=== PATIENT | male | born 1960 | race Caucasian/White ===

== ENCOUNTER 2017-06-22 01:18 | Emergency (ER) | payer OTHER ==
[~2017-06-22] VITALS: Ht 175.3 cm; Wt 90.7 kg
[~2017-06-22 01:18] MED LIST: LIORESAL 10MG T10 MG PO; MOTRIN 800MG T800 MG PO; PERCOCET 325 MG1 TA2 PO
[2017-06-22] MEDS ORDERED: SERTRALINE HCL100 MG PO (01:28)
[2017-06-22 02:04] LABS: ABSOLUTE BASOPHIL COUNT 0 /CUMM (0.0-0.2); ABSOLUTE EOSINOPHIL COUNT 0.2 /CUMM (0.0-0.7); ABSOLUTE GRANULOCYTE CT 6.9 /CUMM (1.4-6.5); ABSOLUTE LYMPH COUNT 2.4 /CUMM (1.2-3.4); ABSOLUTE MONOCYTE COUNT 0.6 /CUMM (0.10-0.60); BASOPHIL % 0.3 % (0.0-2.0); EOSINOPHIL % 2.2 % (0-5); GRANULOCYTE % 68.3 % (42.2-75.2); HEMATOCRIT 47.8 % (42-52); MEAN CORPUSCULAR HGB 31.3 PG (27.0-31.0); MEAN CORPUSCULAR HGB CONC 33.9 G/DL (33.0-37.0); MEAN CORPUSCULAR VOLUME 92.2 FL (80.0-94.0); PLATELET COUNT 206 /CUMM (130-400); RBC DISTRIBUTION WIDTH 13.4 % (11.5-14.5); RED BLOOD CELL CT 5.19 /CUMM (4.70-6.10); WHITE BLOOD CELL COUNT 10.1 /CUMM (4.8-10.8)
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
--- NOTE | 2017-06-22 03:05 | CT SCAN REPORT ---
EXAMINATION: CT ABDOMEN AND PELVIS WITH CONTRAST CLINICAL INFORMATION: Epigastric pain. Elevated lipase. COMPARISON: 11/11/2012 TECHNIQUE: Multidetector volumetric imaging was performed of the abdomen and pelvis following IV administration of 94 mL of Optiray 320 intravenous contrast. Sagittal and coronal reformatted images were obtained on the technologist's workstation. DLP: 354 mGy-cm FINDINGS: LUNG BASES: The visualized lung bases are unremarkable. LIVER, GALLBLADDER, AND BILIARY TREE: The liver is normal in size, shape, and attenuation. No focal hepatic lesion or biliary ductal dilatation is present. The gallbladder is unremarkable with no evidence of radiopaque gallstones, gallbladder wall thickening, or obvious pericholecystic inflammatory changes. Vague area of hypoattenuation within the main portal vein is likely artifactual. PANCREAS: Unremarkable. SPLEEN: Unremarkable. ADRENAL GLANDS: Unremarkable. KIDNEYS AND URETERS: The kidneys are normal in size, shape, and attenuation. No hydronephrosis, hydroureter, or calculi seen. No perinephric stranding. BLADDER: Unremarkable. GASTROINTESTINAL TRACT: The stomach and small bowel appear unremarkable. No dilated loops of bowel or evidence of obstruction. Normal appendix. Scattered colonic diverticulosis without diverticulitis. No colonic wall thickening or inflammatory change. No free air or free fluid. ABDOMINAL WALL: No significant hernia is appreciated. LYMPH NODES: Normal. VASCULAR: Unremarkable. PELVIC VISCERA: The prostate and seminal vesicles are unremarkable. OSSEOUS STRUCTURES: No acute or suspicious osseous abnormality. Mild degenerative changes in the spine. IMPRESSION: No acute findings of the abdomen or pelvis. Vague area of hypoattenuation in the main portal vein is likely artifactual, as the remainder of the portal vein enhances normally. No sequela of pancreatitis are visualized.
[2017-06-22] MEDS ORDERED: REGLAN10 M1 PO (03:31)
[2017-06-22] MEDS ORDERED: PEPCID20 M1 PO (03:31)
[2017-06-22 03:37] VITALS: BP 123/76
== END 2017-06-22 03:43 ==
LOC: ERH 01:18
PROVIDERS: Emergency Medicine
DX: K21.0 Gastro-esophageal reflux disease with esophagitis (principal); R74.8 Abnormal levels of other serum enzymes
CPT/HCPCS: 74177; 96374; 96375; J2765

== ENCOUNTER 2017-06-27 15:50 | Observation (INO) | payer OTHER ==
[~2017-06-27] VITALS: Ht 175.3 cm; Wt 90.7 kg
[~2017-06-27 15:50] MED LIST changes: +PEPCID20 M1 PO; +REGLAN10 M1 PO; +SERTRALINE HCL100 MG PO
[2017-06-27 16:20] LABS: ABSOLUTE BASOPHIL COUNT 0 /CUMM (0.0-0.2); ABSOLUTE EOSINOPHIL COUNT 0.2 /CUMM (0.0-0.7); ABSOLUTE GRANULOCYTE CT 9.3 /CUMM (1.4-6.5); ABSOLUTE LYMPH COUNT 2.6 /CUMM (1.2-3.4); ABSOLUTE MONOCYTE COUNT 0.8 /CUMM (0.10-0.60); BASOPHIL % 0.2 % (0.0-2.0); EOSINOPHIL % 1.2 % (0-5); HEMATOCRIT 48.2 % (42-52); MEAN CORPUSCULAR HGB CONC 33.5 G/DL (33.0-37.0); MEAN CORPUSCULAR VOLUME 92.5 FL (80.0-94.0); MEAN PLATELET VOLUME 8.2 FL (7.4-10.4); PLATELET COUNT 229 /CUMM (130-400); RBC DISTRIBUTION WIDTH 13.6 % (11.5-14.5); RED BLOOD CELL CT 5.21 /CUMM (4.70-6.10)
--- NOTE | 2017-06-27 19:55 | ED GENERAL ADULT ---
History of Present Illness General Chief Complaint: General Adult Stated Complaint: SIB WALK-IN "YOU NEED HEART ENZYMES IN MY BLOOD Source: patient Exam Limitations: no limitations Vital Signs & Intake/Output Vital Signs & Intake/Output Vital Signs Date Time Temp Pulse Resp B/P B/P Pulse O2 O2 Flow FiO2 Mean Ox Delivery Rate 06/27 2303 97.6 67 20 114/62 97 Room Air 06/27 2016 Room Air 06/27 1554 98.2 75 18 141/78 98 Room Air Allergies Coded Allergies: Sulfa (Sulfonamide Antibiotics) (UNKNOWN 08/20/15) ciprofloxacin (From CIPRO) (Itching Rash 08/20/15) Reconcile Medications Famotidine (Pepcid) 20 MG TABLET 1 TAB PO BID esophagitis Metoclopramide HCl (Reglan) 10 MG TABLET 1 TAB PO 4 TIMES/DAY PRN esophageal spasm 30 minutes before meals and bedtime Sertraline HCl 100 MG TABLET 2 TAB PO DAILY ANXIETY (Reported) Triage Note: 57 TO MALE TO TRIAGE FROM WALK IN FOR ABNORMAL EKG. PT STATES HE HAS BEEN HAVING CHEST PAIN THAT RADIATES INTO HIS THROAT SINCE YESTERDAY. DENIES SOB, STATES "IT JUST HURTS TO TAKE A DEEP BREATH" DENIES N/V. SKIN WARM/DRY. Triage Nurses Notes Reviewed? yes Onset: Gradual Duration: hour(s): (24 HOURS) Timing: recent history Injury Environment: home Severity: moderate Severity Numbers: 6 No Modifying Factors: none HPI: Patient is a 57-year-old male presenting to the emergency department chief complaining of throat pain that has been going on since yesterday evening. Symptoms have been constant for the past 24 hours. Denies taking anything over- the-counter to help with symptoms. Denies any nausea or vomiting. Patient does report that throat pain radiates into the chest at times. No palpitations. Pain is worse with deep inspiration. No fevers or chills. Seen here for similar symptoms 5 days ago, was given medication to help with acid reflux. Patient reports that his acid reflux symptoms had resolved with the daily Pepcid and Reglan but then developed this throat pain. Denies history of drinking. Denies any back pain. (Kathleen NASCIMENTO,Janet) Past History Travel History Traveled to [place] past 21 day No Medical History Any Pertinent Medical History? see below for history Neurological: NONE EENT: NONE Cardiovascular: NONE Respiratory: NONE Gastrointestinal: diverticulitis Hepatic: NONE Renal: KIDNEY STONES Musculoskeletal: NONE Psychiatric: anxiety Endocrine: NONE Blood Disorders: NONE Cancer(s): NONE Surgical History Surgical History: non-contributory Psychosocial History Who do you live with Family What is your primary language [place]an Creole Tobacco Use: Current Daily Use Daily Tobacco Use Amount/Type: => 5 Cigarettes daily Family History Hx Contributory? No (Janet Myers) Review of Systems Review of Systems Constitutional: Reports: no symptoms. Comments Review of systems: See HPI, All other systems negative. Constitutional, no chills fever or weight loss HEENT: No visual changes no congestion Cardiovascular: No palpitation , orthopnea or ankle swelling Skin, no jaundice no rashes Respiratory: No dyspnea cough sputum or hemoptysis GI: No nausea no vomiting : No dysuria No hematuria Muscle skeletal: no back pain, no neck pain, Neurologic: No numbness no confusion, no headache Psych: No stress anxiety or depression,. Heme/endocrine: No bruising no bleeding no polyuria or polydipsia Immunology: No splenectomy or history of AIDS (Janet Myers) Physical Exam Physical Exam General Appearance: well developed/nourished, no apparent distress, alert, awake , comfortable Comments: Well-developed well-nourished person in no acute distress HEENT: Pupils equally round and reactive to light and accommodation. Nose is atraumatic. External auditory canal and Tympanic membranes clear. Pharynx normal. No swelling or edema. Neck: Supple, mild edema noted on the right neck with digitalization. No palpable lymphadenopathy. FULL ROM. Back: Nontender Cardiovascular: Regular rate and rhythms no murmurs rubs or gallops Respiratory: Chest nontender. No respiratory distress.breath sounds clear to auscultation bilaterally Abdomen: Soft, nontender nondistended, no appreciable organomegaly. Normal bowel sounds. No ascites. No rebound or guarding. Extremity: No edema Neuro: Alert oriented x3 Skin: No appreciable rash on exposed skin, skin is warm and dry. Psych: Mood and affect is normal, memory and judgment is normal. Core Measures ACS in differential dx? Yes CVA/TIA Diagnosis: No Sepsis Present: No Sepsis Focused Exam Completed? No (Janet Myers) Progress Differential Diagnoses I considered the following diagnoses in my evaluation of the patient: Pancreatitis, ACS, thyroiditis, pharyngitis, esophageal varices, GERD, pericarditis, NECK MASS/MALIGNANCY Plan of Care: Orders Procedure Date/time Status Heart Healthy Diet 06/[address] in observation 06/27 2248 Active ED Holding Orders 06/27 2248 Active Vital Signs 06/27 2248 Active Code Status 06/27 2248 Active Patient Data 06/27 2243 Active TROPONIN LEVEL 06/27 2047 Complete EKG 06/27 2047 Active Intake & Output 06/27 2015 Active Add-on Test (ER Only) 06/27 2008 Active Add-on Test (ER Only) 06/27 1953 Active LIPASE 06/27 155 Complete D-DIMER 06/27 1556 Complete AMYLASE 06/27 1556 Complete TROPONIN LEVEL 06/27 1555 Complete COMPREHENSIVE METABOLIC PANEL 06/27 1555 Complete CBC WITHOUT DIFFERENTIAL 06/27 155 Complete EKG 06/27 1555 Active Laboratory Tests 06/27/172058: Troponin I < 0.01 06/27/17 1556: Anion Gap 15, Estimated GFR > 60, BUN/Creatinine Ratio 9.1, Glucose 108 H, Calcium 9.7, Total Bilirubin 0.7, AST 39, ALT 43, Alkaline Phosphatase 98, Troponin I < 0.01, Total Protein 7.9, Albumin 4.6, Globulin 3.3, Albumin/ Globulin Ratio 1.4, Amylase 66, Lipase 225, D-Dimer High Sensitivty < 200, CBC w Diff NO MAN DIFF REQ, RBC 5.21, MCV 92.5, MCH 31.0, RDW 13.6, MPV 8.2, Gran % 72.0, Lymphocytes % 20.2 L, Monocytes % 6.4, Eosinophils % 1.2, Basophils % 0.2 , Absolute Granulocytes 9.3 H, Absolute Lymphocytes 2.6, Absolute Monocytes 0.8 H, Absolute Eosinophils 0.2, Absolute Basophils 0, PUBS MCHC 33.5 Diagnostic Imaging: Viewed by Me: Radiology Read, CT Scan. Discussed w/RAD: Radiology Read, CT Scan. Radiology Impression: PATIENT: KELLEE ROTH PRESENT AGE: 57 PATIENT ACCOUNT NO: [id number] : 61 LOCATION: [facility] ORDERING PHYSICIAN: Janet NASCIMENTO SERVICE DATE: 06/27/17 EXAM TYPE: CAT - CT NECK W IV CONTRAST EXAMINATION: CT NECK WITH CONTRAST CLINICAL INFORMATION: Pain and swelling. COMPARISON: None TECHNIQUE: 95 mL Optiray 320 injected intravenously. Axial images obtained through the neck. Coronal and sagittal reformatted images are performed at the CT scanner DLP: 436.66 mGy-cm FINDINGS: A BB was placed in area of the palpable nodule. This is in the right side of the neck, axial image 170 (3). This is near the angle of the jaw. Patient is edental. There is no neck mass or inflammation. No bulky lymphadenopathy. The thyroid, submandibular glands and parotid glands are normal. No abscess or fluid collection. No prevertebral soft tissue swelling. Normal enhancement of the vasculature. Small air-fluid level in the left sphenoid sinus. The orbits and the partially visualized intracranial structures are normal. Lung apices are clear. There is degenerative spondylosis of cervical spine with endplate spurring and disc height narrowing C5-C6 C6-C7 disc levels. IMPRESSION: Normal CT of neck. No neck mass or inflammation. DICTATED BY: Moises Brown MD DATE/TIME DICTATED:06/27/172216 FAMILY SERVICES SPECIALIST:SERA DATE/ TIME TRANSCRIBED:06/27/172216 CONFIDENTIAL, DO NOT COPY WITHOUT APPROPRIATE AUTHORIZATION. <Electronically signed in Other Vendor System> SIGNED BY: Moises Brown MD 06/27/172226 CXR Impression: no acute abnormality, no infiltrates, normal size heart, normal mediastinum Initial ED EKG: SINUS ARRHYTHMIA AT 75 BPM, DIFFUSE ST ELEVATIONS Repeat EKG: unchanged Comments: SpOKE with Dr. mcdaniel, recommending we keep patient for serial EKGs and troponins. Patient informed of all lab work results and imaging results. Patient resting comfortably. (Janet Myers) Departure Departure Time of Disposition: 2223 Disposition: STILL A PATIENT Condition: Stable Clinical Impression Primary Impression: Abnormal EKG Secondary Impressions: Chest pain Qualifiers: Chest pain type: unspecified Qualified Code: R07.9 - Chest pain, unspecified Referrals: Ana Field (PCP/Family) Departure Forms: Customer Survey General Discharge Information Observation Note Spoke With: Laura GUPTA PHD,Mack Cooley Physician Advisor Notified: ROSALINE ESTRADA DO Place Patient In: Non-ED OBS Care Area Rationale for Observation: My rational for observation is as follows . Patient requiring serial EKGs and troponins, cardiology consultation, discharge at this time is medically harmful. Patient presenting with 8 symptoms patient is over 50, positive smoking history and male. (Janet Myers) PA/MAT WEAVER Co-Sign Statement Statement: ED Attending supervision documentation- [X] I saw and evaluated the patient. I have also reviewed all the pertinent lab results and diagnostic results. I agree with the findings and the plan of care as documented in the PA's/MAT WEAVER's documentation. [X] I have reviewed the ED Record and agree with the PA's/MAT WEAVER's documentation. [] Additions or exceptions (if any) to the PAs/MAT WEAVER's note and plan are summarized below: [] (Obdulia GUPTA,Fani) Critical Care Note Critical Care Note Critical Care Time: non-applicable (Janet Myers)
--- NOTE | 2017-06-27 22:12 | RADIOLOGY REPORT ---
EXAMINATION: XR CHEST CLINICAL INFORMATION: Neck pain. COMPARISON: Chest x-ray 11/11/2012 TECHNIQUE: 2 views of the chest were obtained. FINDINGS: No significant abnormality is noted involving the heart, lungs, mediastinum, bony thorax or soft tissues. IMPRESSION: Unremarkable examination.
--- NOTE | 2017-06-27 22:27 | CT SCAN REPORT ---
EXAMINATION: CT NECK WITH CONTRAST CLINICAL INFORMATION: Pain and swelling. COMPARISON: None TECHNIQUE: 95 mL Optiray 320 injected intravenously. Axial images obtained through the neck. Coronal and sagittal reformatted images are performed at the CT scanner DLP: 436.66 mGy-cm FINDINGS: A BB was placed in area of the palpable nodule. This is in the right side of the neck, axial image 170 (3). This is near the angle of the jaw. Patient is edental. There is no neck mass or inflammation. No bulky lymphadenopathy. The thyroid, submandibular glands and parotid glands are normal. No abscess or fluid collection. No prevertebral soft tissue swelling. Normal enhancement of the vasculature. Small air-fluid level in the left sphenoid sinus. The orbits and the partially visualized intracranial structures are normal. Lung apices are clear. There is degenerative spondylosis of cervical spine with endplate spurring and disc height narrowing C5-C6 C6-C7 disc levels. IMPRESSION: Normal CT of neck. No neck mass or inflammation.
--- NOTE | 2017-06-28 02:44 | History & Physical ---
Kay GUPTA,[facility] 06/28/17 0244: General Information and HPI MD Statement: I have seen and personally examined KELLEE ROTH and documented this H&P. The patient is a 57 year old M who presented with a patient stated chief complaint of [throat pain]. Source of Information: patient Exam Limitations: no limitations History of Present Illness: Mr. Roth is a 57-year-old gentleman with past medical history significant for anxiety, snugged GE junction and diverticulitis comes in with a chief complaint of throat pain for the past 2-3 days. Patient states the pain is achy, 8 x 10 in with deep breath and has no aggravating or relieving factors. Denies any associated chest pain, radiation to his left chest, shortness of breath, sick contacts, recent diarrhea or vomiting, no recent travel or recently viral illness. He did not use any painkillers at home. He was seen in the ED for similar complaints 5 days ago and discharged with over -the-counter reflux medication without any relief. Allergies/Medications Allergies: Coded Allergies: Sulfa (Sulfonamide Antibiotics) (UNKNOWN 08/20/15) ciprofloxacin (From CIPRO) (Itching Rash 08/20/15) Home Med list Famotidine (Pepcid) 20 MG TABLET 1 TAB PO BID esophagitis Metoclopramide HCl (Reglan) 10 MG TABLET 1 TAB PO 4 TIMES/DAY PRN esophageal spasm 30 minutes before meals and bedtime Sertraline HCl 100 MG TABLET 2 TAB PO DAILY ANXIETY (Reported) Past History Travel History Traveled to [place] past 21 day No Medical History Neurological: NONE EENT: NONE Cardiovascular: NONE Respiratory: NONE Gastrointestinal: diverticulitis, GE Junction stricture Hepatic: NONE Renal: KIDNEY STONES Musculoskeletal: NONE Psychiatric: anxiety Endocrine: NONE Blood Disorders: NONE Cancer(s): NONE Surgical History Surgical History: non-contributory Past Family/Social History Family History Relations & Conditions if any Relation not specified for: *No pertinent family history Psychosocial History Where do you live? Home Services at Home: None Smoking Status: Former Smoker ETOH Use: denies use Illicit Drug Use: denies illicit drug use Functional Ability ADLs Independent: dressing, eating, toileting, bathing. Ambulation: independent IADLs Independent: shopping, housework, finances, food prep, telephone, transportation , medication admin. Review of Systems Review of Systems Constitutional: Reports: no symptoms. EENTM: Reports: throat pain. Cardiovascular: Reports: no symptoms. Respiratory: Reports: no symptoms. GI: Reports: no symptoms. Genitourinary: Reports: no symptoms. Musculoskeletal: Reports: no symptoms. Skin: Reports: no symptoms. Neurological/Psychological: Reports: no symptoms. Hematologic/Endocrine: Reports: no symptoms. Immunologic/Allergic: Reports: no symptoms. All Other Systems: Reviewed and Negative Exam & Diagnostic Data Last 24 Hrs of Vital Signs/I&O Vital Signs Date Time Temp Pulse Resp B/P B/P Pulse O2 O2 Flow FiO2 Mean Ox Delivery Rate 06/27 2303 97.6 67 20 114/62 97 Room Air 06/27 2016 Room Air 06/27 1554 98.2 75 18 141/78 98 Room Air Intake & Output 06/28 0800 06/28 0000 06/27 1600 Intake Total Output Total Balance Patient 200 lb 200 lb Weight Weight Reported by Patient Measurement Method Physical Exam General Appearance Alert, Oriented X3, Cooperative, No Acute Distress Skin No Rashes, No Breakdown HEENT Atraumatic, PERRLA, EOMI, Mucous Membr. moist/pink, slightly erythematous pharynx Neck Supple, No JVD, No thryomegaly Cardiovascular Regular Rate, Normal S1, Normal S2, Systolic Murmur in the mitral area. Lungs Clear to Auscultation, Normal Air Movement Abdomen Normal Bowel Sounds, Soft, No Tenderness Extremities No Clubbing, No Cyanosis, No Edema, Normal Pulses Last 24 Hrs of Labs/Grady: Laboratory Tests 06/27/17 2059: Troponin I < 0.01 06/27/17 1556: Anion Gap 15, Estimated GFR > 60, BUN/Creatinine Ratio 9.1, Glucose 108 H, Calcium 9.7, Total Bilirubin 0.7, AST 39, ALT 43, Alkaline Phosphatase 98, Troponin I < 0.01, Total Protein 7.9, Albumin 4.6, Globulin 3.3, Albumin/ Globulin Ratio 1.4, Amylase 66, Lipase 225, D-Dimer High Sensitivty < 200, CBC w Diff NO MAN DIFF REQ, RBC 5.21, MCV 92.5, MCH 31.0, RDW 13.6, MPV 8.2, Gran % 72.0, Lymphocytes % 20.2 L, Monocytes % 6.4, Eosinophils % 1.2, Basophils % 0.2 , Absolute Granulocytes 9.3 H, Absolute Lymphocytes 2.6, Absolute Monocytes 0.8 H, Absolute Eosinophils 0.2, Absolute Basophils 0, PUBS MCHC 33.5 Diagnostic Data EKG Results Normal sinus rhythm Diffuse ID depressions or ST segment elevations. CXR Results IMPRESSION: Unremarkable examination. Other Results CT NECK W IV CONTRAST IMPRESSION: Normal CT of neck. No neck mass or inflammation. Assessment/Plan Assessment: Mr. Roth is a 57-year-old gentleman with past medical history significant for anxiety, snugged GE junction and diverticulitis comes in with a chief complaint of throat pain for the past 2-3 days. A/P; 1. Abnormal EKG; Patient reports throat pain with EKG showing diffuse ID depressions or ST elevations, differentials include pericarditis, myocarditis or thyroiditis(in which case the EKG changes will be nonsignificant). - Will observe the patient on telemetry floor for 24-48 hours. - We will do rapid flu test, Monospot test and check TSH and free T4 levels. - Cardiology consult - Echocardiogram - Initial troponin level is 0.01 with EKG showing diffuse ?? ST elevations or ID depressions. Repeat troponins and EKG x 2 to rule out ACS. 2. Anxiety - Continue sertraline. DVT prophylaxis; subcutaneous heparin Patient is full code. As Ranked By This Provider Problem List: 1. Abnormal EKG Core Measures/Misc (02/25) Acute Coronary Syndrome ACS Diagnosis: No Congestive Heart Failure Congestive Heart Failure Diagnosis No Cerebrovascular Accident CVA/TIA Diagnosis: No VTE (View Protocol) VTE Risk Factors Age>40 No Mechanical VTE Prophylaxis d/t N/A MechProphylax Ordered No VTE Pharm Prophylaxis d/t NA PharmProphylax ordered Sepsis (View protocol) Sepsis Present: No Tierra Aguero MD 06/28/17 0359: Resident Review Statement Resident Statement: examined this patient, discussed with phd intern, agreed with phd intern Other Findings: This is a 57-year-old male with past medical history significant for diverticulitis, and anxiety, who comes in with chief complaint of throat pain. Patient states that the symptoms started since yesterday. He states that it's an ache in the sides of his neck that at its worst is an 8 out of 10. The pain is continuous and not exacerbated by swallowing. He does state that it occasionally radiates to his chest and it is worse with inspiration, there is no exertional component. He was seen in ED 5 days ago for similar complaint and was given tpuh-rez-[id number] reflux medication. He states that did not help with his symptoms. He denies any nausea, vomiting, palpitations, fevers, chills, URI , sick contacts or recent travel. Social history significant for over 25 years of half a pack per day smoking. He does not drink or engage in IV drug abuse. There is no family history of CAD. Patient denies any surgery. Notably, in 2011 patient had complaints of dysphasia and was seen by Dr. Perea. At that time an EGD was performed and he was noted to have a "snug GE junction." No strictures were noted he did have some distal esophageal erosions. Vitals: 98.2, heart rate between 67 and 75, respiratory rate between 18 and 20, blood pressure between 114/62-141/78, and between 97 and 98% on room air Physical exam: HEENT: Pupils equal and reactive. EOMI. His throat is erythematous. No lesions or tonsilar exudate. No lymphnodes palpable. No thyroid irregularlities appreciated. Cardiovascular: Nml s1/s2; 3/6 systolic murmur in mitral area. No JVD. Skin: no erythema, rash or wounds present. Respiratory:CTAB GI: BSX4, No tenderness on palpation. EXT: no LE edema - Assessment: This is a 57-year-old male with past medical history significant for diverticulitis, anxiety, distal esophageal erosions, who comes in for chief complaint of throat pain radiating to his chest. Notably, EKG in ED shows diffuse changes. It is difficult to tell if they are diffuse ID depressions or diffuse ST elevation. As such limited patient to telemetry service for further monitoring and workup. 1. Throat pain with associated EKG change: Neck CT is normal. Chest x-ray within normal limits. Patient does have some erythema noted in the posterior pharynx. No other lesions present. Given this throat pain that sounds pleuritic in nature, differential on this patient includes: Pericarditis, pleurisy, thyroiditis, myocarditis, or simple viral URI. However, given EKG changes will need to rule out ACS. * Check TFTs * mono swab * Strep swab * flu swab * Indomethacin 75 mg twice a day * Echocardiogram * Troponin/EKG * Appreciate cardio consult 2. Leukocytosis: White count is 13 but patient is afebrile. Notably during his last ED visit he had a count of 10. He does have left shift but no bands. His chest x-ray is normal. Has no GI complaints. There is no obvious source of infection other than his throat pain and associated erythema. Likely of viral etiology. * Continue to monitor * No clear source at this time * Hold off antibiotics 3. Anxiety: Chronic and stable * Continue sertraline 4. Hypernatremia: Patient has mild hypernatremia with sodium of 146. * Continue to monitor * Encourage by mouth fluids Full code Heart healthy diet Chemical DVT prophylaxis
[2017-06-28 05:54] LABS: ABSOLUTE BASOPHIL COUNT 0 /CUMM (0.0-0.2); ABSOLUTE EOSINOPHIL COUNT 0 /CUMM (0.0-0.7); ABSOLUTE GRANULOCYTE CT 5.6 /CUMM (1.4-6.5); ABSOLUTE LYMPH COUNT 2.9 /CUMM (1.2-3.4); ABSOLUTE MONOCYTE COUNT 0.7 /CUMM (0.10-0.60); BASOPHIL % 0.4 % (0.0-2.0); EOSINOPHIL % 0.5 % (0-5); HEMATOCRIT 45.2 % (42-52); MEAN CORPUSCULAR HGB 31.3 PG (27.0-31.0); MEAN CORPUSCULAR HGB CONC 33.9 G/DL (33.0-37.0); MEAN CORPUSCULAR VOLUME 92.1 FL (80.0-94.0); MEAN PLATELET VOLUME 7.7 FL (7.4-10.4); PLATELET COUNT 195 /CUMM (130-400); RBC DISTRIBUTION WIDTH 13.8 % (11.5-14.5); WHITE BLOOD CELL COUNT 9.3 /CUMM (4.8-10.8)
--- NOTE | 2017-06-28 07:33 | PN-Observation ---
Observation Note Observation Note _ I have personally examined KELLEE ROTH. him disposition is uncertain at this time. Before a determination can be made, he requires continued observation for the following reasons []. * He is under observation status in the telemetry floor for continuous telemetry monitoring. * Serial troponin and EKG to rule out ACS * Echocardiogram * Pending cardiology evaluation Assessment/Plan Assessment: This is a 57-year-old male with past medical history significant for diverticulitis, and anxiety, who comes in with chief complaint of throat pain and chest pain for 2 days. -------- Vitals: 98.2, heart rate between 67 and 75, respiratory rate between 18 and 20, blood pressure between 114/62-141/78, 98% on room air Pertinent labs-leukocytosis 13, hemoglobin 16, hematocrit 48, platelets 229. BMP completely normal. Abnormal thyroid function tests free T4 0.5 and TSH 7. Chest x-ray and CAT scan neck was normal. - Assessment: This is a 57-year-old male with past medical history significant for diverticulitis, anxiety, distal esophageal erosions, who comes in for chief complaint of throat pain radiating to his chest. Notably, EKG in ED shows diffuse changes. It is difficult to tell if they are diffuse [place] depressions or diffuse ST elevation. As such limited patient to telemetry service for further monitoring and workup. 1. Throat pain/chest pain with associated EKG change: Neck CT is normal. Chest x-ray within normal limits. Patient does have some erythema noted in the posterior pharynx. No other lesions present. Given this throat pain that sounds pleuritic in nature, differential on this patient includes: Pericarditis, pleurisy, thyroiditis, myocarditis, or simple viral URI. However, given EKG changes will need to rule out ACS. * Placed in observation in the telemetry floor * Continuous telemetry monitoring * Serial troponin, EKG-ruled out ACS * EKG changes suggestive of diffuse ST elevation with TX depression suggestive of acute pericarditis * Indomethacin 75 twice daily * Echocardiogram pending * mono swab neg * Strep swab neg * flu swab neg * Indomethacin 75 mg twice a day * Cardiology consulted Abnormal thyroid function tests Thyroid function tests were done as a part of workup for chest pain. He was found to have free T4 0.51 and and TSH 7.62. Looks like primary hypothyroidism. However he denied any hypothyroid symptoms like constipation, weight gain, hyperlipidemia, cold intolerance. No prior thyroid problems. No family h/o thyroid issues. * Endocrinology consulted * Repeat thyroid profile TSH, free T4, total T3, thyroid antibody panel. * Will follow-up endocrinology recommendations and start levothyroxine accordingly. 2. Leukocytosis: White count is 13 but patient is afebrile. Notably during his last ED visit he had a count of 10. He does have left shift but no bands. His chest x-ray is normal. Has no GI complaints. There is no obvious source of infection other than his throat pain and associated erythema. Likely of viral etiology. * Continue to monitor * No clear source at this time * Hold off antibiotics * Remained afebrile with normal WBC count today 3. Anxiety: Chronic and stable * Continue sertraline 4. Hypernatremia: Patient has mild hypernatremia on admission with sodium of 146. * Continue to monitor * Encourage by mouth fluids * Repeat sodium 144 this mrng H/O GE Junction stricture Notably, in 2011 patient had complaints of dysphasia and was seen by Dr. Olson. At that time EGD was performed and he was noted to have a "snugged GE junction." No strictures were noted he did have some distal esophageal erosions. * Continue Reglan * Continue famotidine Full code Heart healthy diet Chemical DVT prophylaxis Problem List: 1. Chest pain Qualifiers Chest pain type: unspecified Qualified Code: R07.9 - Chest pain, unspecified Subjective Follow-up For: chest pain Complaints: pain scale (0-10) Tele-Events Since Last Visit: Sinus rhythm, no acute ST-T wave changes, rate 70-80 Subjective: Patient was seen and examined this morning. He is alert awake and oriented to time place person. no acute events overnight. Patient denies any chest pain, shortness of breath, palpitations, fever, chills, diaphoresis, sweating. He was comfortable and sleeping this morning. Denies any throat pain, dysphagia, odynophagia. Vitals were stable Review of Systems Constitutional: Reports: see HPI. Objective Last 24 Hrs of Vital Signs/I&O Vital Signs Date Time Temp Pulse Resp B/P B/P Pulse O2 O2 Flow FiO2 Mean Ox Delivery Rate 06/28 1430 96.7 58 18 105/59 97 Room Air Room Air 06/28 0720 97.0 60 122/66 06/28 0555 96.0 52 20 124/65 98 Room Air 06/27 2303 97.6 67 20 114/62 97 Room Air 06/27 2017 Room Air 06/27 1554 98.2 75 18 141/78 98 Room Air Intake & Output 06/28 1600 06/28 0800 06/28 0000 Intake Total 480 Output Total 300 Balance 180 Intake, Oral 480 Output, Urine 300 Patient 90.718 kg Weight Physical Exam General Appearance: Alert, Oriented X3, Cooperative, No Acute Distress Other Physical Findings: Skin No Rashes, No Breakdown HEENT Atraumatic, PERRLA, EOMI, Mucous Membr. moist/pink, slightly erythematous pharynx Neck Supple, No JVD, No thryomegaly Cardiovascular Regular Rate, Normal S1, Normal S2, Systolic Murmur in the mitral area. Lungs Clear to Auscultation, Normal Air Movement Abdomen Normal Bowel Sounds, Soft, No Tenderness Extremities No Clubbing, No Cyanosis, No Edema, Normal Pulses Current Medications: Current Medications Sig/Jessica Start time Last Medication Dose Route Stop Time Status Admin Acetaminophen 650 MG Q6P PRN 06/28 0115 AC PO Famotidine 20 MG BID 06/28 1000 AC 06/28 PO 1000 Famotidine 0 .STK-MED ONE 06/28 0837 DC PO Ibuprofen 600 MG Q6P PRN 06/28 0115 DC PO Indomethacin Sodium 75 MG BID 06/28 0230 AC 06/28 PO 1000 Ketorolac 15 MG Q6P PRN 06/28 0115 DC Tromethamine IV Ketorolac 0 .STK-MED ONE 06/27 2057 DC Tromethamine .ROUTE Ketorolac 30 MG ONCE ONE 06/27 2044 DC 06/27 Tromethamine IV 06/27 Metoclopramide HCl 10 MG 4 TIMES/DAY PRN 06/28 0800 AC PO Sertraline HCl 200 MG DAILY 06/28 1000 AC 06/28 PO 1000 Last 24 Hrs of Labs/Mics: Laboratory Tests 06/28/17 0547: Anion Gap 13, Estimated GFR > 60, BUN/Creatinine Ratio 16.7, Troponin I < 0.01, TSH 7.620 H, Free T4 0.51 L, CBC w Diff NO MAN DIFF REQ, RBC 4.90, MCV 92.1, MCH 31.3 H, RDW 13.8, MPV 7.7, Gran % 60.0, Lymphocytes % 31.1, Monocytes % 8.0 , Eosinophils % 0.5, Basophils % 0.4, Absolute Granulocytes 5.6, Absolute Lymphocytes 2.9, Absolute Monocytes 0.7 H, Absolute Eosinophils 0, Absolute Basophils 0, PUBS MCHC 33.9, ESR W[place]gren 16 H, Infectious [place] Titer NEGATIVE 06/27/172058: Troponin I < 0.01 06/27/17 1556: Anion Gap 15, Estimated GFR > 60, BUN/Creatinine Ratio 9.1, Glucose 108 H, Calcium 9.7, Total Bilirubin 0.7, AST 39, ALT 43, Alkaline Phosphatase 98, Troponin I < 0.01, Total Protein 7.9, Albumin 4.6, Globulin 3.3, Albumin/ Globulin Ratio 1.4, Amylase 66, Lipase 225, D-Dimer High Sensitivty < 200, CBC w Diff NO MAN DIFF REQ, RBC 5.21, MCV 92.5, MCH 31.0, RDW 13.6, MPV 8.2, Gran % 72.0, Lymphocytes % 20.2 L, Monocytes % 6.4, Eosinophils % 1.2, Basophils % 0.2 , Absolute Granulocytes 9.3 H, Absolute Lymphocytes 2.6, Absolute Monocytes 0.8 H, Absolute Eosinophils 0.2, Absolute Basophils 0, PUBS MCHC 33.5 Microbiology 06/28 0608 NASOPHARYN: Influenza Virus A & B Rapid Smear - COMP
[2017-06-28 14:30] VITALS: BP 105/59
--- NOTE | 2017-06-28 16:31 | Patient Discharge Instructions ---
Discharge Instructions General Discharge Information You had these procedures: Throat pain/chest pain with associated EKG change Abnormal thyroid function tests hypothyroidism Special Instructions: f/u pcp in one week after discharge. f/u batch operator in one week after discharge. f/u aircraft engine mechanic overhaul in one week after discharge. f/u gastroeneterologist in one week after discharge. Diet Continue normal diet: Yes Activity Full Activity/No Limits: Yes Acute Coronary Syndrome Inclusion Criteria At DC or during hospital stay patient has or had the following: ACS DIAGNOSIS No Discharge Core Measures Meds if any: Prescribed or Continued at Discharge Meds if any: NOT Prescribed or Continued at Discharge Congestive Heart Failure Inclusion Criteria At DC or during hospital stay patient has or had the following: CHF DIAGNOSIS No Discharge Core Measures Meds if any: Prescribed or Continued at Discharge Meds if any: NOT Prescribed or Continued at Discharge Cerebrovascular accident Inclusion Criteria At DC or during hospital stay patient has or had the following: CVA/TIA Diagnosis No Discharge Core Measures Meds if any: Prescribed or Continued at Discharge Meds if any: NOT Prescribed or Continued at Discharge Venous thromboembolism Inclusion Criteria VTE Diagnosis No VTE Type NONE VTE Confirmed by (Test) NONE Discharge Core Measures - Per Current guidelines, there needs to be overlap - treatment for the first 5 days of Warfarin therapy. - If discharged on Warfarin prior to 5 days of - overlap therapy, the patient will need to be - assessed for post discharge needs including - *Post discharge parental anticoagulation - *Warfarin and/or parental anticoagulation education - *Follow up date to check INR post discharge At least 5 days overlap therapy as Inpatient No Meds if any: Prescribed or Continued at Discharge Note: Overlap Therapy is Warfarin and Anticoagulant Meds if any: NOT Prescribed or Continued at Discharge
--- NOTE | 2017-06-28 17:22 | Event Note ---
Event Note Event Note: Abnormal thyroid function tests Thyroid function tests were done as a part of workup for chest pain. He was found to have free T4 0.51 and and TSH 7.62. Looks like primary hypothyroidism. However he denied any hypothyroid symptoms like constipation, weight gain, hyperlipidemia, cold intolerance. No family h/o thyroid issues. Reports remote history of thyroid problems, however he couldn't remember. Endocrinology was consulted. Recommended to Repeat thyroid profile TSH, free T4, total T3, thyroid antibody panel. Patient wants to leave this evening and he wants to follow-up with Dr. nobles as an outpatient. He doesn't want to start any thyroid medications right now. He was advised to follow-up fish and wildlife scientific aid Dr. nobles in 2-3 days after discharge. He was given prescription to check thyroid function tests. chest pain Dr. Sanchez spoke with the patient. According to the title clerk his chest pain is related to gastrointestinal problem, heartburn. No findings suggestive of acute pericarditis. No recommendation for any anti-inflammatory medication now. Advised to follow-up with title clerk and guest relations executive as an outpatient. Off note echocardiogram was normal.
--- NOTE | 2017-06-28 19:16 | Cons- Cardiology ---
General Information and HPI Consulting Request Date of Consult: 06/28/17 Requested By: Laura GUPTA PHD,Mack Cooley History of Present Illness: David is a 57 year old male with history of anxiety who presented to the ER with complaints of complains of an upper midsternal chest pain radiating toward his throat. He feels that this discomfort is exacerbated by breathing. In addition, he feels a brackish reflux into his throat. At baseline this patient can exercise vigorously and there is no exertional component to this discomfort which lasted for over 24 hours without any rise in cardiac enzymes. He denies shortness of breath, lighteadedness or palpitations. A prior echocardiogram performed in 2007 was remarkable for an overall normal ejection fraction of 63% with trace MR, TR and CT. Allergies/Medications Allergies: Coded Allergies: Sulfa (Sulfonamide Antibiotics) (UNKNOWN 08/20/15) ciprofloxacin (From CIPRO) (Itching Rash 08/20/15) Home Med List: Famotidine (Pepcid) 20 MG TABLET 1 TAB PO BID esophagitis Metoclopramide HCl (Reglan) 10 MG TABLET 1 TAB PO 4 TIMES/DAY PRN esophageal spasm 30 minutes before meals and bedtime Sertraline HCl 100 MG TABLET 2 TAB PO DAILY ANXIETY (Reported) Review of Systems Review of Systems: A review os systems is unremarkable. Past History Travel History Traveled to [place] past 21 day No Medical History Neurological: NONE EENT: NONE Cardiovascular: NONE Respiratory: NONE Gastrointestinal: diverticulitis, hiatal hernia, GE Junction stricture, fatty liver Hepatic: NONE Renal: KIDNEY STONES Musculoskeletal: NONE Psychiatric: anxiety Endocrine: NONE Blood Disorders: NONE Cancer(s): NONE Surgical History Surgical History: non-contributory Family History Relations & Conditions If Any: Relation not specified for: *No pertinent family history Family History Reviewed? Father: pre-leukemic state Mother: premature CAD with CABG in CABG Psychosocial History Where Do You Live? Home Services at Home: None Smoking Status: Former Smoker ETOH Use: denies use Illicit Drug Use: denies illicit drug use Functional Ability ADLs Independent: dressing, eating, toileting, bathing. Ambulation: independent IADLs Independent: shopping, housework, finances, food prep, telephone, transportation , medication admin. Exam & Diagnostic Data Vital Signs and I&O Vital Signs Date Time Temp Pulse Resp B/P B/P Pulse O2 O2 Flow FiO2 Mean Ox Delivery Rate 06/28 1430 96.7 58 18 105/59 97 Room Air Room Air 06/28 0720 97.0 60 122/66 06/28 0555 96.0 52 20 124/65 98 Room Air 06/27 2303 97.6 67 20 114/62 97 Room Air 06/27 2016 Room Air Intake & Output 06/28 1600 06/28 0800 06/28 0000 06/27 1600 06/27 0800 06/27 0000 Intake Total 480 Output Total 300 Balance 180 Intake, Oral 480 Output, Urine 300 Patient 200 lb 200 lb Weight Weight Reported by Patient Measurement Method Physical Exam: General: WD/WN male in NAD; alert and oriented x 3 HEENT: NC/AT, PERRL, EOMI Neck: no JVD, no carotid bruits Heart: RRR w/o murumur Lungs: clear bilaterally Abdomen: soft, NT, +ve bowel sounds Extremities: no edema Assessment/Plan Assessment/Plan * This patient has symptoms that are more suggestive of gastroesophageal reflux disease than myocardial ischemia. The patient has no acute ischemic changes on his ECG and has normal cardiac enzymes despite prolonged chest pain. There is no evidence to support pericarditis. An echocardiogram was obtained that shows a normal EF with no evidence of pericardial ischemia. * This patient was noted to have hypothyroidism and will follow up with Dr. Keller. * This patient can be discharged with a plan for outpatient stress test on a PPI with plan for follow up with myself, Dr. Perea of GI and Dr. Keller. Consult Acknowledgment - Thank you for your consult request.
--- NOTE | 2017-06-28 21:34 | Cons- Endocrinology ---
See Addendum General Information and HPI Consulting Request Date of Consult: 06/28/17 Requested By: medical team Reason for Consult: evaluation and management of hypothyroidism Source of Information: patient, old records Exam Limitations: no limitations History of Present Illness: 57 y/o male who was diagnosed with mild hypothyroidism in 2007. As per patient, thyroid medication was recommended, but he hasn't been taking it. Since then, his TSH has been between 4 and 8.0. Clinically he has been asymptomatic. He presented to ER on 06/27/2017 for atypical chect pain along with EKG changes. Blood work showed TSH 7.62 and free T4 0.51. Allergies/Medications Allergies: Coded Allergies: Sulfa (Sulfonamide Antibiotics) (UNKNOWN 08/20/15) ciprofloxacin (From CIPRO) (Itching Rash 08/20/15) Home Med List: Famotidine (Pepcid) 20 MG TABLET 1 TAB PO BID esophagitis Metoclopramide HCl (Reglan) 10 MG TABLET 1 TAB PO 4 TIMES/DAY PRN esophageal spasm 30 minutes before meals and bedtime Sertraline HCl 100 MG TABLET 2 TAB PO DAILY ANXIETY (Reported) Review of Systems Review of Systems Constitutional: Reports: see HPI. Cardiovascular: Reports: chest pain. Respiratory: Denies: short of breath. GI: Reports: abdominal pain. Genitourinary: Denies: dysuria. Musculoskeletal: Denies: back pain. Hematologic/Endocrine: Denies: polyuria, polydipsia. Past History Travel History Traveled to [place] past 21 day No Medical History Neurological: NONE EENT: NONE Cardiovascular: NONE Respiratory: NONE Gastrointestinal: diverticulitis, hiatal hernia, [place] stricture fatty liver Hepatic: NONE Renal: KIDNEY STONES Musculoskeletal: NONE Psychiatric: anxiety Endocrine: NONE Blood Disorders: NONE Cancer(s): NONE Surgical History Surgical History: non-contributory Family History Relations & Conditions If Any: Relation not specified for: *No pertinent family history Psychosocial History Where Do You Live? Home Services at Home: None Smoking Status: Former Smoker ETOH Use: denies use Illicit Drug Use: denies illicit drug use Functional Ability ADLs Independent: dressing, eating, toileting, bathing. Ambulation: independent IADLs Independent: shopping, housework, finances, food prep, telephone, transportation , medication admin. Exam & Diagnostic Data Last 24 Hrs of Vital Signs/I&O Vital Signs Date Time Temp Pulse Resp B/P B/P Pulse O2 O2 Flow FiO2 Mean Ox Delivery Rate 06/28 1430 96.7 58 18 105/59 97 Room Air Room Air 06/28 0720 97.0 60 122/66 06/28 0555 96.0 52 20 124/65 98 Room Air 06/27 2303 97.6 67 20 114/62 97 Room Air Intake & Output 06/28 1600 06/28 0800 06/28 0000 Intake Total 480 Output Total 300 Balance 180 Intake, Oral 480 Output, Urine 300 Patient 200 lb Weight Physical Exam General Appearance: no apparent distress Neck: no significant thyromegaly Respiratory: lungs clear Cardiovascular: regular rate/rhythm Gastrointestinal: soft, non-tender Extremities: no edema Labs/Grady Results: Laboratory Tests 06/28 0547 Chemistry Sodium (137 - 145 mmol/L) 144 Potassium (3.5 - 5.1 mmol/L) 4.0 Chloride (98 - 107 mmol/L) 106 Carbon Dioxide (22 - 30 mmol/L) 24 Anion Gap (5 - 16) 13 BUN (9 - 20 mg/dL) 15 Creatinine (0.7 - 1.2 mg/dL) 0.9 Estimated GFR (>60 ml/min) > 60 BUN/Creatinine Ratio (7 - 25 %) 16.7 Troponin I (<0.11 ng/ml) < 0.01 TSH (0.270 - 4.200 uIU/mL) 7.620 H Free T4 (0.64 - 1.79 ng/dL) 0.51 L Hematology CBC w Diff NO MAN DIFF REQ WBC (4.8 - 10.8 /CUMM) 9.3 RBC (4.70 - 6.10 /CUMM) 4.90 Hgb (14.0 - 18.0 G/DL) 15.3 Hct (42 - 52 %) 45.2 MCV (80.0 - 94.0 FL) 92.1 MCH (27.0 - 31.0 PG) 31.3 H RDW (11.5 - 14.5 %) 13.8 Plt Count (130 - 400 /CUMM) 195 MPV (7.4 - 10.4 FL) 7.7 Gran % (42.2 - 75.2 %) 60.0 Lymphocytes % (20.5 - 51.1 %) 31.1 Monocytes % (1.7 - 9.3 %) 8.0 Eosinophils % (0 - 5 %) 0.5 Basophils % (0.0 - 2.0 %) 0.4 Absolute Granulocytes (1.4 - 6.5 /CUMM) 5.6 Absolute Lymphocytes (1.2 - 3.4 /CUMM) 2.9 Absolute Monocytes (0.10 - 0.60 /CUMM) 0.7 H Absolute Eosinophils (0.0 - 0.7 /CUMM) 0 Absolute Basophils (0.0 - 0.2 /CUMM) 0 PUBS MCHC (33.0 - 37.0 G/DL) 33.9 ESR W[place]gren (0 - 10 MM) 16 H Serology Infectious [place] Titer (NEGATIVE) NEGATIVE Assessment/Plan Assessment/Plan 57 y/o male who has had mild hypothyroidism since 2007 and he has been hesitant to take thyroid hormone replacement. Clinically he has bbeen asymptomatic. I have recommended having repeat TSH, free T4 and TT3 done. In addition, I have recommended checking thyroid antobody panel. Then the treatment will be determined accordingly. will follow. Consult Acknowledgment - Thank you for your consult request.
--- NOTE | 2017-06-29 12:16 | ECHOCARDIOGRAM REPORT ---
KLELEE ROTH Age: 57 : 1960 Gender: M Exam Date: 06/28/2017 16:15 Exam Location: ER Ht (in): 69 Wt (lb): 200 BSA: 2.12 BP: 105 / 59 Ordering Physician: Cherie oDdson MD Referring Physician: Mack Sanchez MD, PhD Technologist: Geri Martinez [facility] Room Number: [id number] Indications: CHEST PAIN Rhythm: Technical Quality: good FINDINGS Left Ventricle Normal left ventricular size with mild left ventricular hypertrophy. Normal systolic function with no obvious regional wall motion abnormalities. Normal left ventricular diastolic filling pattern for age. The ejection fraction is visually estimated at 70%. Right Ventricle The right ventricle is normal in size and function. Right Atrium The right atrium is normal in size. Left Atrium The left atrium is normal in size. The interatrial septum is intact. Mitral Valve The mitral valve is normal in structure and function. There is no mitral regurgitation. Aortic Valve Structurally normal aortic valve without significant sclerosis or stenosis. There is no aortic regurgitation. Tricuspid Valve The tricuspid valve is normal in structure and function. There is trace tricuspid regurgitation. Pulmonary artery systolic pressure is normal. Pulmonic Valve Structurally normal pulmonic valve. There is no pulmonic regurgitation. Pericardium Normal pericardium without effusion. No pleural effusion. Great Vessels Normal aortic root dimension. The aortic arch and great vessels are well seen and are normal. CONCLUSIONS 1. Normal EF of 70%. 2. Mild left ventricular hypertrophy. 3. Trace tricuspid regurgitation. Mack Sanchez M.D. (Electronically Signed) Final Date: 29 June 2017 12:15 MEASUREMENTS (Male / Female) Normal Values 2D ECHO LV Diastolic Diameter PLAX 3.8 cm 4.2 - 5.9 / 3.9 - 5.3 cm LV Systolic Diameter PLAX 2.4 cm 2.1 - 4.0 cm LV Fractional Shortening PLAX 36.8 % 25 - 46 % LV Ejection Fraction 2D Teich 67.5 % IVS Diastolic Thickness 1.3 cm LVPW Diastolic Thickness 1.3 cm LV Relative Wall Thickness 0.7 RV Internal Dim ED PLAX 3.3 cm 1.9 - 3.8 cm LVOT Diameter 1.9 cm Aortic Root Diameter 3.5 cm LA Systolic Diameter LX 3.9 cm 3.0 - 4.0 / 2.7 - 3.8 cm LA Volume 45.0 cm 18 - 58 / 22 - 52 cm Ascending Aorta Diameter 3.4 cm DOPPLER AV Peak Velocity 143.0 cm/s AV Peak Gradient 8.2 mmHg AV Mean Velocity 99.4 cm/s AV Mean Gradient 5.0 mmHg AV Velocity Time Integral 29.5 cm LVOT Peak Velocity 139.0 cm/s LVOT Peak Gradient 7.7 mmHg LVOT Mean Velocity 86.0 cm/s LVOT Mean Gradient 4.0 mmHg LVOT Velocity Time Integral 27.7 cm LVOT Stroke Volume 78.5 cm AV Area Cont Eq vti 2.7 cm AV Area Cont Eq pk 2.8 cm MV Peak Velocity 105.0 cm/s MV Peak Gradient 4.4 mmHg MV Mean Velocity 50.5 cm/s MV Mean Gradient 1.0 mmHg Mitral E Point Velocity 88.8 cm/s Mitral A Point Velocity 80.9 cm/s Mitral E to A Ratio 1.1 MV PHT Velocity 109.0 cm/s MV Deceleration [place] 383.0 cm/s MV Pressure Half Time 85.4 ms MV Area PHT 2.6 cm MV Deceleration Time 246.0 ms TR Peak Velocity 220.0 cm/s TR Peak Gradient 19.4 mmHg Right Atrial Pressure 5.0 mmHg Pulmonary Artery Systolic Pressu 24.4 mmHg Right Ventricular Systolic Press 24.4 mmHg PV Peak Velocity 131.0 cm/s PV Peak Gradient 6.9 mmHg PV Mean Velocity 77.2 cm/s PV Mean Gradient 3.0 mmHg PV Velocity Time Integral 26.0 cm LV E' Lateral Velocity 10.6 cm/s Mitral E to LV E' Lateral Ratio 8.4 LV E' Septal Velocity 10.6 cm/s Mitral E to LV E' Septal Ratio 8.4
== END 2017-06-28 17:32 ==
LOC: ERH 15:50 → ERHI 22:49 → ENRESERV 06-28 15:34 → ERHI 06-28 17:24
PROVIDERS: Emergency Medicine; Student in an Organized Health Care Education/Training Program
DX: R07.89 Other chest pain (principal); R07.0 Pain in throat; F41.9 Anxiety disorder, unspecified; Z87.891 Personal history of nicotine dependence; E03.9 Hypothyroidism, unspecified; K57.92 Diverticulitis of intestine, part unspecified, without perforation or abscess without bleeding; Z87.442 Personal history of urinary calculi; E87.0 Hyperosmolality and hypernatremia; D72.829 Elevated white blood cell count, unspecified
CPT/HCPCS: 6090; 71046; 82436; 86376; 86800; 87804; 87804-59; 93005; 93010; 93306; 96374; G0378; J1885